=== PATIENT | male | born 1965 | race Hispanic/Latino ===

== ENCOUNTER 2020-07-21 15:45 | Outpatient (CLI) | payer BC, SELFPAY ==
--- NOTE | ~2020-07-21 | US_ITS ---
EXAMINATION: US soft tissue groin LT DATE: 07/21/2020 16:20 INDICATION: Left groin pain TECHNIQUE: Multiple grayscale and Doppler ultrasound images of the region of concern at the left groi n were obtained including cine images with cough and Valsalva. COMPARISON: None FINDINGS: There appears be a small hernia at the region of concern, likely a left inguinal hernia which expands slightly with Valsalva and cough. No evident peristalsing herniated bowel. IMPRESSION: 1. Small likely fat-containing left inguinal hernia. Reviewed, dictated and finalized at location B.
== END 2020-07-21 15:46 | disposition home or self-care (01) ==
PROVIDERS: PCP Registered Nurse; Visit Provider Registered Nurse
DX: R10.32 Left lower quadrant pain (principal); K40.90 Unilateral inguinal hernia, without obstruction or gangrene, not specified as recurrent
CPT/HCPCS: 76882

== ENCOUNTER 2023-07-02 15:46 | Inpatient (IN) | payer OTHER, SELFPAY ==
[2023-07-02] VITALS (17 sets, daily range): BP systolic 92–154; BP diastolic 52–94; PULSE 67–105; RESP 11–21; TEMP 36.6; O2SAT 91–100
--- NOTE | ~2023-07-02 | XR_ITS ---
EXAMINATION: XR chest 1V portable Exam Date/Time: 07/02/2023 16:06 CDT HISTORY: chest pain Comparison: None. RESULT: Lines, tubes, and devices: None. Lungs and pleura: Clear. Cardiomediastinal silhouette: Unremarkable. Other: No acute osseous or upper abdominal finding. IMPRESSION: No acute cardiopulmonary process. Reviewed, dictated and finalized at location K.
--- NOTE | 2023-07-02 15:47 | ECG_ITS ---
Measurements Intervals [place] Rate: 75 P: 62 [place]: 141 QRS: 64 QRSD: 110 T: -20 QT: 347 QTc: 390 Interpretive Statements SINUS RHYTHM INFERIOR ST ELEVATION MYOCARDIAL INFARCT- ACUTE LATERAL ST ELEVATION MYOCARDIAL INFARCT- ACUTE BASELINE ARTIFACT- I, III, AVR, AVL ABNORMAL ECG NO PREVIOUS ECG AVAILABLE FOR COMPARISON Electronically Signed On 07-02-2023 18:51:58 CDT by Pa Mittal D.O.
--- NOTE | 2023-07-02 16:02 | PC.NURSE ---
[facility]emi [id number] Dr Mccormick notified [id number] Paged O/H [id number] 155 ALS - [facility] ETA 20min
--- NOTE | 2023-07-02 16:06 | ED.CHESTPAIN ---
HPI - Chest Pain General Chief Complaint: Chest Pain Stated Complaint: chest pain History of Present Illness HPI narrative: patient is a 57-year-old male who presents ER with chest pain. Reports intermittent chest pain over the last week any time he would walk. It gets better when he would rest. At 9:30 a.m. this morning he had recurrence of the pain it was associated with diaphoresis and no vomiting or. Pain when wane in returned again around 1:00 p.m.. Has not gone away which is different for him. Has history of diabetes but reports he is in otherwise good health. He quit smoking years ago. Reports compliance with diabetic medication. Denies history of hypertension or hyperlipidemia. The pain as pressure radiating down left arm. Related Data Allergies Allergy/AdvReac Type Severity Reaction Status Date / Time Penicillins Allergy Rash Verified 07/02/23 15:56 Review of Systems Review of Systems: All systems reviewed & are unremarkable except as noted in HPI and below Constitutional: Constitutional: Reports no additional constitutional complaints ENT: Reports system reviewed and no additional complaints, except as documented Cardiovascular: Cardiovascular: Reports chest pain, Denies rapid heart rate and Reports radiating jaw, neck or arm pain Respiratory: Respiratory: Reports no additional respiratory complaints Gastrointestinal: Gastrointestinal: Denies abdominal pain, Reports nausea and Reports vomiting Genitourinary: Genitourinary: Reports no additional male genitourinary complaints [facility] Past Medical History Medical History (Updated 07/02/23 @ 18:50 by Russ Guallpa MD) Diabetes Surgical History Surgical History (Updated 07/02/23 @ 16:10 by Russ Guallpa MD) History of shoulder surgery Family History Family History (Updated 07/02/23 @ 18:44 by Vinh Lundberg RN) Father Hyperlipemia Father Hypertension Mother Diabetes mellitus Father Diabetes mellitus Exam Narrative: GENERAL: Well-appearing, well-nourished, and in no acute distress. HEAD: Normocephalic, atraumatic. EYES: PERRL and EOMI. ENT: Mucous membranes moist. CHEST: Clear to auscultation. No respiratory distress. HEART: Regular rate and rhythm. Normal peripheral pulses. ABDOMEN: Soft, nontender, nondistended. EXTREMITIES: Normal range of motion. No edema. SKIN: Warm, dry, no rash. NEURO: Alert and oriented x3. PSYCH: Normal mood and affect. Course Course Emergency Course: 1600: discussed case with Dr. Torres with Interventional Cardiology. He is on his way to the hospital. Patient will be medically managed until cath team arrives. Patient and son both educated about diagnosis and treatment plan. Vital Signs Vital signs: Vital Signs Temperature 97.8 F 07/02/23 15:51 Pulse Rate 94 07/02/23 15:51 Respiratory Rate 18 07/02/23 15:51 Blood Pressure 115/94 H 07/02/23 15:51 Pulse Oximetry 97 07/02/23 15:51 Oxygen Delivery Room Air 07/02/23 15:51 Temperature 97.8 F 07/02/23 17:48 Pulse Rate 70 07/02/23 17:48 Respiratory Rate 15 07/02/23 17:48 Blood Pressure 99/73 L 07/02/23 17:48 Pulse Oximetry 93 07/02/23 17:48 Oxygen Delivery Room Air 07/02/23 16:10 MDM - Chest Pain Lab Data 07/02/23 16:04 07/02/23 16:04 Labs: Lab Results 07/02/23 Range/Units 16:04 WBC 14.8 H (4.5-10.0) K/mm3 RBC 5.15 (4.6-6.20) M/mm3 Hgb 15.2 (14.0-18.0) g/dL Hct 45.7 (42.0-52.0) % MCV 88.7 (80-100) fl MCH 29.5 (26-34) pg MCHC 33.3 (32-36) g/dl RDW 12.8 (11.5-14.5) % Plt Count 266 (150-375) k/mm3 MPV 10.6 H (7.4-10.4) fl Immature Gran % (Auto) 0.4 (0-0.5) % Neut % (Auto) 88.5 H (45.5-73.1) % Lymph % (Auto) 7.8 L (18.3-44.2) % [place] % (Auto) 2.8 (2.6-8.5) % Eos % (Auto) 0.2 (0-4.4) % Baso % (Auto) 0.3 (0.2-1.2) % Lymph # (Auto) 1.15 (0.9-3.2) K/mm3 [place] # (Auto) 0.4 (0.1-0.6) K/mm3
--- NOTE | 2023-07-02 16:08 | PC.NURSE ---
1600 324mg aspirin and 180mg of brilinta administered
[2023-07-02] MEDS: ASPIRIN 81 MG CHEWABLE TABLET 324 MG PO (16:09)
[2023-07-02] MEDS: HEPARIN SODIUM 5,000 UNITS/ML VIAL 4000 UNITS IV PUSH (16:12)
[2023-07-02] MEDS: TICAGRELOR 90 MG TABLET 180 MG PO (16:12)
[2023-07-02 16:15] LABS: Basophils Percent Auto 0.3 % (0.2-1.2); Eosinophils Percent Auto 0.2 % (0-4.4); Hematocrit 45.7 % (42.0-52.0); Hemoglobin 15.2 g/dL (14.0-18.0); Immature Granulocyte Absolute 0.06 K/mm3 (0.00-0.031); Immature Granulocyte Percent A 0.4 % (0-0.5); Lymphocytes Absolute Auto 1.15 K/mm3 (0.9-3.2); Lymphocytes Percent Auto 7.8 % (18.3-44.2); Mean Corpuscular HGB Conc 33.3 g/dl (32-36); Mean Corpuscular Hemoglobin 29.5 pg (26-34); Mean Corpuscular Volume 88.7 fl (80-100); Mean Platelet Volume 10.6 fl (7.4-10.4); Monocytes Absolute Auto 0.4 K/mm3 (0.1-0.6); Monocytes Percent Auto 2.8 % (2.6-8.5); Neutrophils Absolute Auto 13.1 K/mm3 (1.3-6.7); Neutrophils Percent Auto 88.5 % (45.5-73.1); Platelet Count Result 266 k/mm3 (150-375); Red Blood Count 5.15 M/mm3 (4.6-6.20); Red Cell Distribution Width 12.8 % (11.5-14.5); White Blood Count 14.8 K/mm3 (4.5-10.0)
[2023-07-02 16:22] LABS: Alanine Aminotransferase 27 U/L (6-50); Albumin Level 4.6 g/dL (3.5-5.1); Alkaline Phosphatase 133 U/L (38-126); Anion Gap 11 mmol/L (8-16); Aspartate Amino Transferase 39 U/L (17-59); Bilirubin,Total 0.5 mg/dL (0.2-1.3); Blood Urea Nitrogen 17 mg/dL (9-20); Calcium 9.7 mg/dL (8.4-10.2); Carbon Dioxide 28 mmol/L (22-30); Chloride 100 mmol/L (98-107); Estimated CRCL calculation 82 ml/min; Estimated Glomerular Filt Rate > 60; Glucose 246 mg/dL (65-110); Lipase 70 U/L (23-300); Potassium 4.1 mmol/L (3.4-5.0); Sodium 139 mmol/L (137-145)
[2023-07-02 16:34] LABS: Troponin I 0.225 ng/mL (0.000-0.034)
[2023-07-02 16:44] LABS: Partial Thromboplastin Time 26.7 Seconds (22.3-36.8); Prothrombin Time 13.5 Seconds (11.1-14.7)
--- NOTE | 2023-07-02 17:38 | PM.IMHP ---
H&P: HPI History of Present Illness Date/Time: 07/02/23 17:38 Chief Complaint: chest pain Narrative: this is a 57-year-old man on known to me prior to this emergency. Apparently has a history of non insulin-dependent diabetes but no other medical problems he has been having intermittent chest pain for couple of weeks. Earlier this afternoon he developed the same pain and unremitting fashion and so he came to the emergency room by private vehicle. He was found to have inferior wall acute current of injury by his ECG and STEMI team was activated. He reports he is currently having 5 to 6/10 chest pain but looks otherwise remarkably comfortable. Review of Systems Review of Systems: ROS unobtainable: Yes unobtainable due to medical condition [facility] Past Medical History Medical History (Updated 07/02/23 @ 17:42 by David Torres MD) Diabetes Surgical History Surgical History (Updated 07/02/23 @ 16:10 by Russ Guallpa MD) History of shoulder surgery Meds Home Medications and Allergies Allergies Allergy/AdvReac Type Severity Reaction Status Date / Time Penicillins Allergy Rash Verified 07/02/23 15:56 Vital Signs Vital Signs - 24 hr 07/02/23 15:51 07/02/23 16:10 07/02/23 16:16 Temperature 36.6 C Pulse Rate 94 105 H Respiratory Rate 18 15 Blood Pressure 115/94 H 154/79 H Pulse Oximetry 97 100 98 Oxygen Delivery Room Air Room Air 07/02/23 16:18 Temperature Pulse Rate 103 H Respiratory Rate 13 Blood Pressure 131/78 Pulse Oximetry 99 Oxygen Delivery Exam Const: General: comfortable and no acute distress Other: Remarkably comfortable appearing 57-year-old man given setting of acute ST-elevation SC HENMT: Mouth: Yes moist mucous membranes Eyes: Sclera: sclerae normal Neck: Neck: supple and no JVD Other: carotid pulses are unremarkable bilateral Resp: Effort & Inspection: normal respiratory effort Auscultation: clear to auscultation bilaterally Cardio: Rate: regular rate Rhythm: regular rhythm Other: no murmur S4 gallop is audible GI: GI Palp: Yes Soft to palpation Auscultation: normal bowel sounds Skin: General skin exam: normal color Neuro: Other: alert and oriented x3 Extrem: Other: no pitting edema, good distal pulses H&P: Results Labs Labs: Short CBC 07/02/23 Range/Units 16:04 WBC 14.8 H (4.5-10.0) K/mm3 Hgb 15.2 (14.0-18.0) g/dL Hct 45.7 (42.0-52.0) % Plt Count 266 (150-375) k/mm3 BMP 07/02/23 16:04 Sodium 139 Potassium 4.1 Chloride 100 Carbon Dioxide 28 BUN 17 Creatinine 0.90 Glucose 246 H Calcium 9.7 Cardiac Enzymes 07/02/23 Range/Units 16:04 Troponin I 0.225 H* (0.000-0.034) ng/mL Liver Function 07/02/23 Range/Units 16:04 Total Bilirubin 0.5 (0.2-1.3) mg/dL AST 39 (17-59) U/L ALT 27 (6-50) U/L Alkaline Phosphatase 133 H (38-126) U/L Albumin 4.6 (3.5-5.1) g/dL Assessment and Plan Assessment and plan (1) ST elevation (STEMI) myocardial infarction: Code(s): I21.3 - ST elevation (STEMI) myocardial infarction of unspecified site Status: Acute Plan 57-year-old gentleman with history of diabetes otherwise no significant medical problems presents with chest pain and acute inferior wall SC. preparations are now being made for emergency angiography and revascularization. David Torres MD [facility]
--- NOTE | 2023-07-02 17:42 | WPDCARDPROC ---
Cardiac Cath Procedure Note Date of procedure:: 07/02/23 Performing physician:: David Torres MD Indication:: acute inferior ST-elevation CT Brief clinical history:: this is a 57-year-old gentleman with diabetes and no other medical history presents with chest pain and acute inferior ST-elevation CT Procedure Procedure performed:: emergency coronary angiography emergency PCI(MANFRED) to the dominant circumflex Sedation/Medication given:: fentanyl 50 mg Versed 2 mg case start time 4:43 p.m. case end time 5:20 p.m. sedation provided by Jumana Bhatt RN, trained observer Access site:: right femoral artery Estimated blood loss:: 25 cc Procedure note:: patient was brought to the cardiac catheterization lab in the emergency setting described above. The femoral triangles were prepped and draped in the usual fashion. 1% lidocaine was infiltrated locally. He had received aspirin and 180 mg of Brilinta in the emergency department. The right femoral artery was then punctured using the modified Seldinger technique and a 6 Sami vascular sheath was placed. Following this a 5 Sami JL4 catheter was used to engage and inject the left coronary artery in multiple projections. A 5 Sami JR4 catheter was used to engage inject the right coronary artery. The cineangiograms were then reviewed and PCI of the circumflex was recommended and carried out as detailed below. Prior to PCI he received bolus and infusion of bivalirudin. Following revascularization of the circumflex the case was terminated the sheath was sutured into position he was taken to the ICU over post mi/PCI recovery. Procedure was well tolerated uncomplicated. Findings:: The left main coronary artery is widely patent and large in caliber left anterior descending is a fairly large caliber vessel extending down to the apex the LAD has mild luminal irregularities but no flow-limiting or angiographically significant disease is identified. The circumflex is a very large vessel giving rise to proximal OM branch after which the trunk of the circumflex is 100% occluded which appears to be the culprit for the patient's presentation the right coronary artery is medium in caliber but is non dominant giving rise to a right ventricular arteries. It is free of disease. Intervention: The left coronary artery was engaged using a 6 Sami JL4 guiding catheter. A 0.014 BMW coronary guidewire was advanced into the circumflex and the occluded segment was probed and and traversed. The wire was advanced into the distal circumflex into a more distal OM branch. The target lesion was then dilated using a 3 x 20 mm Panterra angioplasty balloon at nominal pressure. This restored flow into the large dominant circumflex. Following this the target lesion was stented using the 4.0 x 26 mm [employer] stent. Following stent deployment vessel was widely patent but appeared to be slightly under expanded. I then used a 4.5 by 12 mm high-pressure balloon inflated at 14 atmospheres midportion and proximal portion of the stent. At the end of this the target lesion was widely patent with no residual stenosis and excellent MARY 3 flow into a very large dominant distal circumflex. The stent had to be placed across the origin of the 1st OM branch. The ostium of this branch was then stenosis following high-pressure stent deployment. I used a 2nd 0.014 oversize load pilot escort 150 wire advanced into the circumflex and probe the area of this OM1 crossed through the struts of the stent into this vessel and a 2 balloon inflations using a 2.5 by 15 mm noncompliant balloon at 10 atmospheres which provided excellent revascularization there was no significant residual stenosis at the origin of the 1st OM following inflations as described above. At the end of the procedure the entire a dominant circumflex is widely patent with excellent MARY 3 flow. Conclusion:: 1. Left coronary dominant circulation with acute inferola
[2023-07-02] MEDS: SODIUM CHLORIDE 0.9% IV 1,000 ML 125 ML IV CONT (17:58)
--- NOTE | 2023-07-02 18:51 | ADMGEN ---
This patient, Johnson Jones, was admitted to Intensive Care Unit-6. Patient/family oriented to hospital policies and general routines including ID bracelet, bed and alarms, visiting hours, pain management, procedures, bathroom and other care routines, personal items, smoking policy, room service/diet, and visiting hours. Information on how to activate the Rapid Response Team has been discussed. Patient/Family are encouraged to report perceived risks to care and to ask questions if they do not understand what they are told or what they should do.
[2023-07-02 20:37] LABS: MRSA (PCR) NOT DETECTED (NOT DETECTE)
[2023-07-02 21:09] LABS: Cholesterol 104 mg/dL (0-200); HDL Direct 40 mg/dL; Triglycerides 148 mg/dL (<150)
[2023-07-02 21:21] LABS: LDL Cholesterol Direct 54 mg/dL
[2023-07-02 21:29] LABS: Troponin I > 80.000 ng/mL (0.000-0.034)
[2023-07-02] MEDS: TICAGRELOR 90 MG TABLET PO (22:13)
[2023-07-02] MEDS: MORPHINE SULFATE (*CRX) 4 MG/ML INJ IV PUSH (23:51)
[2023-07-03] VITALS (18 sets, daily range): BP systolic 95–114; BP diastolic 54–72; PULSE 65–97; RESP 13–20; TEMP 36.4–36.9; O2SAT 90–97
[2023-07-03 00:14] LABS: Troponin I > 80.000 ng/mL (0.000-0.034)
--- NOTE | 2023-07-03 05:11 | ECG_ITS ---
Measurements Intervals [place] Rate: 77 P: 57 MO: 152 QRS: -19 QRSD: 87 T: -62 QT: 367 QTc: 417 Interpretive Statements SINUS RHYTHM EARLY PRECORDIAL R/S TRANSITION MINIMAL Q WAVES- LATERAL LEADS INFERIOR INFARCT, RECENT ABNORMAL ECG COMPARED TO ECG 07/02/2023 15:54:02 INFERIOR INFARCT, RECENT NOW PRESENT Electronically Signed On 07-03-2023 13:28:08 CDT by Pa Mittal D.O.
[2023-07-03] MEDS: TICAGRELOR 90 MG TABLET PO ×2 (08:36→20:28)
[2023-07-03] MEDS: ROSUVASTATIN 10 MG TABLET 20 MG PO (08:36)
[2023-07-03] MEDS: ASPIRIN 81 MG CHEWABLE TABLET PO (08:36)
--- NOTE | 2023-07-03 09:52 | PM.PNCARD ---
Progress Note: A&P Assessment and Plan (1) ST elevation (STEMI) myocardial infarction: Code(s): I21.3 - ST elevation (STEMI) myocardial infarction of unspecified site Status: Acute Plan 57-year-old man with: Large acute infero posterior infarction with abrupt occlusion of the very large dominant circumflex yesterday. Patient underwent successful revascularization as detailed in the clinical laboratory service teacher note and is now recovering in the ICU. Troponin and ECG data suggest a large infarction has occurred of the posterior 0 inferior segment. Blood pressure is marginal today will hold his losartan but continues metoprolol for now. Expect at least another 48 hours in the hospital before discharge is considered. Hopefully there will be significant myocardial recovery as this was a very large vessel David Torres MD [facility] Subjective Date/time seen: Date of service: 07/03/23 09:52 Interval history: Follow-up visit in this 57-year-old man with: New diagnosis of coronary disease presenting with acute ST-elevation infero posterior infarction. Status post emergency PCI of large dominant circumflex yesterday. Today he is more stable his chest pain has waned and largely disappeared. Couple of episodes of asymptomatic nonsustained VT last night which did not require treatment. Otherwise feels much better this morning. Troponin an ECG suggest a large infero posterior infarction has occurred Exam Const: General: comfortable and no acute distress HENMT: Mouth: Yes moist mucous membranes Eyes: Sclera: sclerae normal Neck: Neck: supple and no JVD Resp: Effort & Inspection: normal respiratory effort Auscultation: clear to auscultation bilaterally Cardio: Rate: regular rate Rhythm: regular rhythm Other: No murmur no gallop audible GI: GI Palp: Yes Soft to palpation Auscultation: normal bowel sounds Skin: General skin exam: normal color Neuro: Other: Alert and oriented x3 Extrem: Other: Normal perfusion good distal pulses no edema Objective Data Vital Signs Vital Signs: Vital Signs - 24 hr 07/02/23 15:51 07/02/23 16:10 07/02/23 16:16 Temperature 36.6 C Pulse Rate 94 105 H Pulse Rate [Right Pedal (Dorsalis Pedis) Palpation] Respiratory Rate 18 15 Blood Pressure 115/94 H 154/79 H Pulse Oximetry 97 100 98 Oxygen Delivery Room Air Room Air Oxygen Flow Rate 07/02/23 16:18 07/02/23 17:48 07/02/23 18:00 Temperature 36.6 C Pulse Rate 103 H 70 96 Pulse Rate [Right Pedal (Dorsalis Pedis) Palpation] Respiratory Rate 13 15 Blood Pressure 131/78 99/73 L Pulse Oximetry 99 93 Oxygen Delivery Oxygen Flow Rate 07/02/23 18:18 07/02/23 21:47 07/02/23 21:56 Temperature Pulse Rate 96 72 79 Pulse Rate [Right Pedal (Dorsalis Pedis) Palpation] 72 79 Respiratory Rate 21 H 12 20 Blood Pressure 107/73 103/60 94/72 L Pulse Oximetry 93 91 94 Oxygen Delivery Oxygen Flow Rate 07/02/23 22:02 07/02/23 19:18 07/02/23 22:08 Temperature Pulse Rate 70 96 73 Pulse Rate [Right Pedal (Dorsalis Pedis) Palpation] 67 73 Respiratory Rate 13 17 16 Blood Pressure 92/66 L 92/52 L 92/64 L Pulse Oximetry 97 92 93 Oxygen Delivery Oxygen Flow Rate 07/02/23 21:52 07/02/23 22:15 07/02/23 23:18 Temperature Pulse Rate 84 77 84 Pulse Rate [Right Pedal (Dorsalis Pedis) Palpation] Respiratory Rate 13 15 11 L Blood Pressure 96/65 L 92/64 L 99/66 L Pulse Oximetry 91 94 91 Oxygen Delivery Oxygen Flow Rate 07/02/23 20:00 07/02/23 20:00 07/03/23 00:00 Temperature Pulse Rate 97 Pulse Rate [Right Pedal (Dorsalis Pedis) Palpation] Respiratory Rate Blood Pressure Pulse Oximetry 91 90 Oxygen Delivery Room Air Nasal Cannula Oxygen Flow Rate 2 07/03/23 04:00 07/02/23 22:00 07/03/23 02:00 Temperature Pulse Rate 79 74 Pulse Rate [Right Pedal (Dorsalis Pedis) Palpation] Respiratory Rate Blood Pressure Pulse Oximet
--- NOTE | 2023-07-03 09:53 | WPDCNINT ---
Assessment and Plan Assessment and plan (1) ST elevation (STEMI) myocardial infarction: Code(s): I21.3 - ST elevation (STEMI) myocardial infarction of unspecified site Status: Acute Assessment and Plan: Inferior STEMI status post catheterization 1.? ? Left coronary dominant circulation with acute inferolateral myocardial infarction resulting from complete occlusion of a very large dominant circumflex after OM1 2. ? successful emergency PCI balloon dilatation, drug-eluting stenting of the target lesion followed by high-pressure inflation using the 4.5 mm balloon. 3.? ? Stenosis in jailing of the 1st OM branch was seen angiographically following stenting of the target lesion.? This was addressed successfully by crossing with 2nd wire and balloon dilatation with a 2nd high-pressure 2.5 mm balloon as described above. 4.? ? Patient received approximately 30 mg of contrast for this intervention I therefore chose not to perform a left ventriculogram. Patient now asymptomatic and chest pain-free. Check echocardiogram Aspirin, losartan, beta-solange, Brilinta, Crestor Telemetry monitoring (2) Diabetes: Code(s): E11.9 - Type 2 diabetes mellitus without complications Status: Acute Assessment and Plan: Continue metformin and glimepiride Check HbA1c Add sliding scale Plan DVT prophylaxis -patient will ambulate today Nutrition -diabetic diet Code Status - Full Code Transfer out ICU today [employer] Consult Note Consult date: 07/03/23 Reason for consult: STEMI HPI: Johnson Jones is a 57 year old male with past medical history of diabetes mellitus presented yesterday to with CP and chest pain. On presentation to ER patient reported the intermittent chest for mostly exertion which resolved at rest. Yesterday at 9:30 a.m. pain recurred and was associated with diaphoresis. Pain was central with radiated to arms. 10/10 severe. No nausea or vomiting. All other systems were reviewed and were negative. He presented to ER Workup in the ER showed ST elevation in the inferior leads on EKG. Patient was diagnosed with STEMI and taken to cardiac catheterization lab. Patient underwent cardiac catheterization which showed Conclusion:: 1.? ? Left coronary dominant circulation with acute inferolateral myocardial infarction resulting from complete occlusion of a very large dominant circumflex after OM1 2. ? successful emergency PCI balloon dilatation, drug-eluting stenting of the target lesion followed by high-pressure inflation using the 4.5 mm balloon. 3.? ? Stenosis in jailing of the 1st OM branch was seen angiographically following stenting of the target lesion.? This was addressed successfully by crossing with 2nd wire and balloon dilatation with a 2nd high-pressure 2.5 mm balloon as described above. 4.? ? Patient received approximately 30 mg of contrast for this intervention I therefore chose not to perform a left ventriculogram. This morning he states he feels much better and denies any symptoms or complaints. His chest pain has completely resolved. Patient denies fever, chest pain, shortness of breath, cough, nausea vomiting, abdominal pain,, diarrhea, headache or constipation. All other systems reviewed and were negative Review of Systems Review of Systems: All systems reviewed & are unremarkable except as noted in HPI and below (HPI) [facility] Past Medical History Medical History (Updated 07/03/23 @ 10:00 by Parminder Hilliard MD) Diabetes Surgical History Surgical History History of shoulder surgery Family History Family History Father Hyperlipemia Father Hypertension Mother Diabetes mellitus Father Diabetes mellitus Social History Social History Smoking packs per day: 2 Smoking cigarettes per day: 40.0 Years smoked: 15 Smoking pack-years:
[2023-07-03] MEDS: METOPROLOL SUCCINATE EXT REL 25 MG TABCR PO (10:35)
[2023-07-03 10:51] LABS: Hemoglobin A1C 8.4 % (<5.7)
[2023-07-03 11:36] LABS: Glucose Point of Care 258 mg/dl (65-105)
[2023-07-03] MEDS: INSULIN ASPART (*BKC) 100 UNITS/ML SUB-Q ×3 (12:01→23:00)
--- NOTE | 2023-07-03 14:45 | PC.NURSE ---
This patient, Johnson Jones, was transferred to [[facility]] on 07/03/23 at 1445. Personal belongings sent with patient. Report given to [John MCDONNELL]. Appropriate documentation sent with patient.
[2023-07-03 17:04] LABS: Glucose Point of Care 223 mg/dl (65-105)
[2023-07-03] MEDS: metFORMIN HCL 500 MG TABLET 1000 MG PO (18:18)
[2023-07-03] MEDS: GLIMEPIRIDE 2 MG TABLET 4 MG PO (18:18)
[2023-07-03 20:36] LABS: Glucose Point of Care 287 mg/dl (65-105)
[2023-07-04] VITALS (18 sets, daily range): BP systolic 90–103; BP diastolic 51–65; PULSE 71–82; RESP 14–20; TEMP 36.4–36.6; O2SAT 93–99
--- NOTE | 2023-07-04 | ECHO_ITS ---
Patient Info Name: Johnson Jones Age: 57 years : 1965 Gender: Male Ht: 66 in Wt: 183 lbs BSA: 1.99 m2 HR: 73 bpm BP: 102 / 59 mmHg Heart Rhythm: Sinus Rhythm Technical Quality: Fair Exam Date: 07/04/2023 9:31 AM Exam Location: Echo Lab Patient Status: Inpatient Admit Date: 07/02/2023 Staff Ordering Physician: David Torres MD [employer] Production Technician: Doreen Bay RDCS Attending Provider: David Torres MD Referring Physician: Brian HARRINGTON; Exam Type: CA echo doppler color flow Study Info Indications - PCI Complete two-dimensional, color flow and Doppler transthoracic echocardiogram is performed. Summary 1. Complete two-dimensional, color flow and Doppler transthoracic echocardiogram is performed. 2. Normal left ventricularSizeAnd akinesisOf the posterior, inferior segments, global ejectionApproximately 45%. 3. Trivial mitral regurgitation. 4. Normal right ventricularSize and function. Left Ventricle Left ventricular chamber dimension is normal. Left ventricular systolic function is mildly reduced, estimated at 45-50%. Right Ventricle Right ventricular chamber dimension is normal. Left Atria Left atrial chamber dimension is normal. Right Atria Right atrial chamber dimension is normal. Aortic Valve The aortic valve is normal. Pulmonic Valve The pulmonic valve is not well visualized. Mitral Valve The mitral valve has normal leaflets. There is trace mitral valve regurgitation. Tricuspid Valve The tricuspid valve leaflets are normal. Pericardium/Pleural The pericardium appears normal. Aorta The aortic root size at the sinus of Valsalva is normal. Left Ventricular Outflow Tract Name Value Normal LVOT 2D LVOT Diameter 2.0 cm LVOT Doppler LVOT Peak Gradient 2 mmHg LVOT Mean Gradient 1 mmHg LVOT VTI 14 cm LVOT VTI/AV VTI Ratio 0.8 LVOT Stroke Volume 42 ml LVOT CO 3.1 l/min LVOT CI 1.5 l/min/m2 Pulmonic Valve Name Value Normal RVOT Doppler RVOT Peak Gradient 1 mmHg PV Doppler PV Peak Gradient 3 mmHg Mitral Valve Name Value Normal MV Doppler MV Decel Winkler 841 cm/s2 MV PHT 37 ms MV Area (PHT) 5.9 cm2 4.0-5.0 MV Diastolic Function MV E Peak Velocity
[2023-07-04 03:40] LABS: Hematocrit 40.2 % (42.0-52.0); Hemoglobin 12.9 g/dL (14.0-18.0); Mean Corpuscular HGB Conc 32.1 g/dl (32-36); Mean Corpuscular Hemoglobin 29.3 pg (26-34); Mean Corpuscular Volume 91.2 fl (80-100); Mean Platelet Volume 10.7 fl (7.4-10.4); Platelet Count Result 225 k/mm3 (150-375); Red Blood Count 4.41 M/mm3 (4.6-6.20); Red Cell Distribution Width 13.1 % (11.5-14.5)
[2023-07-04 03:55] LABS: Alanine Aminotransferase 53 U/L (6-50); Albumin Level 3.7 g/dL (3.5-5.1); Alkaline Phosphatase 81 U/L (38-126); Anion Gap 2 mmol/L (8-16); Aspartate Amino Transferase 194 U/L (17-59); Bilirubin,Total 0.5 mg/dL (0.2-1.3); Blood Urea Nitrogen 14 mg/dL (9-20); Calcium 8.7 mg/dL (8.4-10.2); Carbon Dioxide 32 mmol/L (22-30); Chloride 104 mmol/L (98-107); Estimated CRCL calculation 83 ml/min; Estimated Glomerular Filt Rate > 60; Glucose 92 mg/dL (65-110); Magnesium 2.2 mg/dL (1.6-2.3); Potassium 3.7 mmol/L (3.4-5.0); Sodium 138 mmol/L (137-145)
[2023-07-04 08:27] LABS: Glucose Point of Care 125 mg/dl (65-105)
[2023-07-04] MEDS: ROSUVASTATIN 10 MG TABLET 20 MG PO (09:43)
[2023-07-04] MEDS: TICAGRELOR 90 MG TABLET PO ×2 (09:44→20:45)
[2023-07-04] MEDS: LOSARTAN POTASSIUM 25 MG TABLET PO (09:44)
[2023-07-04] MEDS: METOPROLOL SUCCINATE EXT REL 25 MG TABCR PO (09:44)
[2023-07-04] MEDS: GLIMEPIRIDE 2 MG TABLET 4 MG PO ×2 (09:44→18:31)
[2023-07-04] MEDS: ASPIRIN 81 MG CHEWABLE TABLET PO (09:44)
[2023-07-04] MEDS: metFORMIN HCL 500 MG TABLET 1000 MG PO ×2 (09:44→18:32)
--- NOTE | 2023-07-04 10:53 | PM.PNCARD ---
Progress Note: A&P Assessment and Plan (1) ST elevation (STEMI) myocardial infarction: Code(s): I21.3 - ST elevation (STEMI) myocardial infarction of unspecified site Status: Acute Assessment and Plan: Large acute inferoposterior infarction with abrupt occlusion of the very large dominant circumflex on 07/02/23. Patient underwent successful revascularization as detailed in the garden labourer note and is now recovering in the IMU. Blood pressure is marginal today will hold his losartan but continue metoprolol for now. Echo pending Expect at least another 24 hours in the hospital before discharge is considered. (2) CAD (coronary artery disease): Code(s): I25.10 - Atherosclerotic heart disease of [place] coronary artery without angina pectoris Status: Acute Assessment and Plan: CAD presenting with STEMI and found to have 100% occlusion of the LCX. He is now s/p PCI with MANFRED x 1. Continue DAPT with ASA indefinitely, Brilinta for 1 year Continue high intensity statin Risk factor modification for CAD Continue beta solange, ARB Referral to cardiac rehab Subjective Date/time seen: 07/04/23 10:53 Interval history: Follow-up visit in this 57-year-old man with: New diagnosis of coronary disease presenting with acute ST-elevation infero posterior infarction. Status post emergency PCI of large dominant circumflex yesterday. Today he is more stable his chest pain has waned and largely disappeared. Couple of episodes of asymptomatic nonsustained VT last night which did not require treatment. Otherwise feels much better this morning. Troponin an ECG suggest a large infero posterior infarction has occurred Date of service 07/04/2023: He is feeling well this morning and has no complaints of any kind. Denies any chest pain. Review of Systems Review of Systems: ROS unobtainable: Yes unobtainable due to medical condition Exam Const: General: comfortable and no acute distress HENMT: Mouth: Yes moist mucous membranes Eyes: Sclera: sclerae normal Neck: Neck: supple and no JVD Other: carotid pulses are unremarkable bilateral Resp: Effort & Inspection: normal respiratory effort Auscultation: clear to auscultation bilaterally Cardio: Rate: regular rate Rhythm: regular rhythm Other: No murmur no gallop audible GI: Auscultation: normal bowel sounds Skin: General skin exam: normal color Neuro: Other: Alert and oriented x3 Extrem: Other: Normal perfusion good distal pulses no edema Objective Data Vital Signs Vital Signs: Vital Signs - 24 hr 07/03/23 12:00 07/03/23 12:00 07/03/23 12:00 Temperature 36.8 C Pulse Rate 82 97 Respiratory Rate 20 Blood Pressure 110/61 Pulse Oximetry 94 97 Oxygen Delivery Nasal Cannula Oxygen Flow Rate 1 07/03/23 14:00 07/03/23 15:30 07/03/23 16:00 Temperature 36.7 C Pulse Rate 88 84 79 Respiratory Rate 19 Blood Pressure 95/64 L Pulse Oximetry 97 Oxygen Delivery Oxygen Flow Rate 07/03/23 16:00 07/03/23 18:00 07/03/23 19:55 Temperature 36.9 C Pulse Rate 88 92 Respiratory Rate 18 Blood Pressure 114/64 Pulse Oximetry 92 95 Oxygen Delivery Nasal Cannula Oxygen Flow Rate 1 07/03/23 20:00 07/03/23 22:00 07/03/23 20:00 Temperature Pulse Rate 89 81 81 Respiratory Rate 18 Blood Pressure Pulse Oximetry 95 Oxygen Delivery Room Air Oxygen Flow Rate 07/03/23 23:43 07/04/23 00:00 07/04/23 00:00 Temperature 36.4 C Pulse Rate 68 78 78 Respiratory Rate 18 18 Blood Pressure 97/54 L Pulse Oximetry 97 97 Oxygen Delivery Room Air Oxygen Flow Rate 07/04/23 02:00 07/04/23 04:18 07/04/23 04:00 Temperature 36.4 C Pulse Rate 73 77 76 Respiratory Rate 18 Blood Pressure 102/59 L Pulse Oximetry 93 Oxygen Delivery Oxygen Flow Rate 07/04/23 04:00 07/04/23 05:58 07/04/23 07:46 Temperature 36.4 C L Pulse Rate 77 73 74 R
[2023-07-04] MEDS: INSULIN ASPART (*BKC) 100 UNITS/ML SUB-Q ×2 (11:25→21:36)
[2023-07-04 12:06] LABS: Glucose Point of Care 205 mg/dl (65-105)
[2023-07-04 19:09] LABS: Glucose Point of Care 110 mg/dl (65-105)
[2023-07-04 20:54] LABS: Glucose Point of Care 239 mg/dl (65-105)
[2023-07-05] VITALS (8 sets, daily range): BP systolic 99–106; BP diastolic 57–58; PULSE 67–78; RESP 18; TEMP 36.3; O2SAT 94–100
[2023-07-05 05:09] LABS: Hematocrit 41.7 % (42.0-52.0); Hemoglobin 13.2 g/dL (14.0-18.0); Mean Corpuscular HGB Conc 31.7 g/dl (32-36); Mean Corpuscular Hemoglobin 29.5 pg (26-34); Mean Corpuscular Volume 93.3 fl (80-100); Mean Platelet Volume 10.8 fl (7.4-10.4); Platelet Count Result 217 k/mm3 (150-375); Red Blood Count 4.47 M/mm3 (4.6-6.20); Red Cell Distribution Width 12.9 % (11.5-14.5); White Blood Count 8.8 K/mm3 (4.5-10.0)
[2023-07-05 05:23] LABS: Alanine Aminotransferase 48 U/L (6-50); Alkaline Phosphatase 85 U/L (38-126); Anion Gap 4 mmol/L (8-16); Aspartate Amino Transferase 106 U/L (17-59); Bilirubin,Total 0.6 mg/dL (0.2-1.3); Blood Urea Nitrogen 16 mg/dL (9-20); Calcium 8.8 mg/dL (8.4-10.2); Carbon Dioxide 30 mmol/L (22-30); Chloride 104 mmol/L (98-107); Estimated CRCL calculation 73 ml/min; Estimated Glomerular Filt Rate > 60; Glucose 83 mg/dL (65-110); Magnesium 2.2 mg/dL (1.6-2.3); Sodium 138 mmol/L (137-145)
[2023-07-05 08:31] LABS: Glucose Point of Care 89 mg/dl (65-105)
--- NOTE | 2023-07-05 09:13 | PM.DS ---
DS: Admitting Diagnosis Discharge Date 07/05/2023 Admitting Diagnosis STEMI DS: Discharge Diagnosis Discharge Diagnosis (1) ST elevation (STEMI) myocardial infarction: Code(s): I21.3 - ST elevation (STEMI) myocardial infarction of unspecified site Status: Acute Assessment and Plan: Large acute inferoposterior infarction with abrupt occlusion of the very large dominant circumflex on 07/02/23. Patient underwent successful revascularization as detailed in the chemical laboratory chief note and is now recovering in the IMU. Echo showed mildly reduced LV systolic function with akinesis of the posteroinferior segments with mildly reduced LVEF, 45% --Continue DAPT with ASA indefinitely and Brilinta for 1 year --Continue beta solange --Continue ARB --Continue statin --Risk factor modification for CAD --Cardiac rehab order placed (2) CAD (coronary artery disease): Code(s): I25.10 - Atherosclerotic heart disease of [place] coronary artery without angina pectoris Status: Acute Assessment and Plan: As above. Continue DAPT for one year, ASA indefinitely. Continue high intensity statin DS: Summary Hospital Course Hospital Course: Presented to the hospital on 07/02/23 with complaint of intermittent chest pain for a couple of weeks. He came to the Emergency Department because of ongoing chest discomfort and was found to have an acute inferior wall DE. He was taken emergently to the cardiac chemical laboratory chief for angiography and revascularization. He was found to have a complete occlusion of a large dominant circumflex artery. He underwent successful PCI with MANFRED x 1 followed by balloon angioplasty of a jailed OM following stent placement. Recovered as expected with no significant complications. He did have some hypotension which he was asymptomatic with. Today he is stable, has no complaints, and is appropriate for discharge Time Spent with Patient Time attestation: Total time spent providing and/or coordinating discharge services: Exam Const: General: comfortable and no acute distress Other: HENMT: Mouth: Yes moist mucous membranes Eyes: Sclera: sclerae normal Neck: Neck: supple and no JVD Other: carotid pulses are unremarkable bilateral Resp: Effort & Inspection: normal respiratory effort Auscultation: clear to auscultation bilaterally Cardio: Rate: regular rate Rhythm: regular rhythm Other: No murmur no gallop audible GI: Auscultation: normal bowel sounds Skin: General skin exam: normal color Neuro: Other: Alert and oriented x3 Extrem: Other: Normal perfusion good distal pulses no edema. Arterial access site free from bleeding, hematoma. DS: Data Data Completed and Pending Labs on day of discharge: Labs from last 24 hours 07/05/23 07/05/23 07/04/23 07:39 04:45 20:05 WBC 8.8 RBC 4.47 L Hgb 13.2 L Hct 41.7 L MCV 93.3 MCH 29.5 MCHC 31.7 L RDW 12.9 Plt Count 217 MPV 10.8 H Sodium 138 Potassium 4.0 Chloride 104 Carbon Dioxide 30 Anion Gap 4 L BUN 16 Creatinine 0.90 Estim Creat Clear Calc 73 Estimated GFR > 60 Glucose 83 POC Capillary Glucose 89 239 H Calcium 8.8 Magnesium 2.2 Total Bilirubin 0.6 AST 106 H ALT 48 Alkaline Phosphatase 85 Total Protein 7.0 Albumin 4.0 07/04/23 07/04/23 17:19 11:19 WBC RBC Hgb Hct MCV MCH MCHC RDW Plt Count MPV Sodium Potassium Chloride Carbon Dioxide Anion Gap BUN Creatinine Estim Creat Clear Calc Estimated GFR Glucose POC Capillary Glucose 110 H 205 H Calcium Magnesium Total Bilirubin AST ALT Alkaline Phosphatase Total Protein Albumin Discharge Plan Discharge Attending physician on discharge: Katiuska Mina Consulting providers: Parminder Hilliard; Bennie Hou; Pa Mittal Discharging Clinician: Charlene Garcai Patient Dispositi
[2023-07-05] MEDS: TICAGRELOR 90 MG TABLET PO (09:24)
[2023-07-05] MEDS: metFORMIN HCL 500 MG TABLET 1000 MG PO (09:24)
[2023-07-05] MEDS: LOSARTAN POTASSIUM 25 MG TABLET PO (09:24)
[2023-07-05] MEDS: GLIMEPIRIDE 2 MG TABLET 4 MG PO (09:24)
[2023-07-05] MEDS: METOPROLOL SUCCINATE EXT REL 25 MG TABCR PO (09:24)
[2023-07-05] MEDS: ROSUVASTATIN 10 MG TABLET 20 MG PO (09:24)
[2023-07-05] MEDS: ASPIRIN 81 MG CHEWABLE TABLET PO (09:24)
== END 2023-07-05 12:36 | disposition home or self-care (01) | DRG 322 ==
LOC: ANHED 16:05 → ANHICU 17:26 → ANHIMU 07-03 14:52
PROVIDERS: Internal Medicine; Admitting Provider Specialist; Emergency Provider Emergency Medicine; PCP Registered Nurse; Visit Provider Nurse Practitioner
PROC: 4A023N7 Measurement of Cardiac Sampling and Pressure, Left Heart, Percutaneous Approach (ICD-10-PCS; CPT 93452; principal; 2023-07-02 16:15)
PROC: 027034Z Dilation of Coronary Artery, One Artery with Drug-eluting Intraluminal Device, Percutaneous Approach (ICD-10-PCS; 2023-07-02 16:15)
DX: I21.11 ST elevation (STEMI) myocardial infarction involving right coronary artery (principal); T82.897A Other specified complication of cardiac prosthetic devices, implants and grafts, initial encounter; I25.10 Atherosclerotic heart disease of native coronary artery without angina pectoris; E11.9 Type 2 diabetes mellitus without complications; Y71.2 Prosthetic and other implants, materials and accessory cardiovascular devices associated with adverse incidents; Z87.891 Personal history of nicotine dependence
CPT/HCPCS: 36415; 71045; 80053; 80061; 82948; 83036; 83690; 83735; 84484; 85025; 85027; 85610; 85730; 87641; 93005; 93306; 93458; 99291; A9270; C1725; C1769; C1874; C1887; C1894; C9606; J0583; J1644; J1815; J2250; J2270; J3010; J7030; J7040